=== PATIENT | male | born 1980 | race Caucasian/White ===

== ENCOUNTER 2019-04-15 12:52 | Observation (INO) ==
[~2019-04-15 12:52] MED LIST: LIDOCAINE W/ SODIUM BICARB 0.5 ML SYR ONE; LIDOCAINE W/ SODIUM BICARB 0.5 ML SYR SUBD PRN; Lactated Ringers 1,000 ML PRIMARY IV ONE
[2019-04-15] MEDS: Lactated Ringers 1,000 ML PRIMARY IV SCH ×2 (13:00→18:24)
[2019-04-15] MEDS ORDERED: LIDOCAINE HCL 1%/EPI 1:100,000 - 20 ML VIAL ONE (14:42)
[2019-04-15] MEDS ORDERED: PHENYLEPHRINE 1% 30 ML NASAL DROPS ONE (14:43)
[2019-04-15] MEDS ORDERED: Bacitracin Oint 14.2 gm tube 14 APPLIC/14.2 GM TUBE TOPICAL ONE (14:43)
[2019-04-15] MEDS ORDERED: LIDOCAINE HCL 5 ML JEL TOPICAL ONE (14:43)
[2019-04-15] MEDS ORDERED: fentaNYL Inj 100 MCG/2 ML VIAL ONE (15:24)
[2019-04-15] MEDS ORDERED: PROPOFOL 10 MG/1 ML (200 MG/20 ML) VIAL IV ONE (15:25)
[2019-04-15] MEDS ORDERED: ceFAZolin 1 GM VIAL IVP ONE (15:43)
[2019-04-15] MEDS ORDERED: ceFAZolin Inj 2gm (Premix) 0 GM/0 ML BAG IV ONE (15:44)
[2019-04-15] MEDS ORDERED: ceFAZolin Inj 3 GM in Sodium Chloride 0.9% 100 ML IV ONE (16:00)
[2019-04-15] MEDS ORDERED: HYDROmorphone 2 MG/1 ML ONE (16:36)
[2019-04-15] MEDS: HYDROmorphone 2 MG/1 ML IVP PRN ×3 (16:48→17:01)
[2019-04-15] MEDS: HYDROcodone-APAP 7.5 MG-325 MG TABLET PO ONE ×2 (17:23→17:33)
[2019-04-15] MEDS ORDERED: HYDROcodone-APAP 7.5 MG-325 MG TABLET PO ONE (17:25)
[2019-04-15] MEDS ORDERED: ONDANSETRON 4 MG/2 ML VIAL IVP PRN (18:34)
[2019-04-15] MEDS ORDERED: Lactated Ringers 1,000 ML PRIMARY IV SCH (18:34)
[2019-04-15] MEDS: HYDROcodone-APAP 7.5 MG-325 MG TABLET PO PRN ×2 (19:05→23:16)
[2019-04-15] MEDS ORDERED: metFORMIN 500 MG TABLET PO SCH (21:00)
[2019-04-16 00:37] VITALS: RESP 16
[2019-04-16] MEDS: HYDROcodone-APAP 7.5 MG-325 MG TABLET PO PRN ×2 (00:58→08:26)
[2019-04-16 08:43] VITALS: BP 138/79; TEMP 97.7
[2019-04-16 10:49] VITALS: O2SAT 96
== END 2019-04-16 09:12 | disposition home or self-care (01) ==
LOC: MED/SURG 12:52 → OR 12:52 → OPS 12:53
PROVIDERS: ADMIT Otolaryngology; ATTEND Otolaryngology